=== PATIENT | male | born 1995 | race Caucasian/White ===

== ENCOUNTER → 2017-09-24 | Outpatient (CLI) | payer OTHER ==
[~2017-09-24] MED LIST: AMOCLA875 PO; Cleocin HCl300 MG PO; HYDR1TAB94 PO; LIDO2L MM; PENVK500 PO; PROM25 PO
== END | disposition home or self-care (01) ==
LOC: LAB SHORT 12:43 → LAB EV 12:43
DX: J02.9 Acute pharyngitis, unspecified (principal)
CPT/HCPCS: 87070